=== PATIENT | female | born 1995 | race Native Hawaiian/Other Pacific Islander ===

== ENCOUNTER 2020-03-08 07:51 | Outpatient (CLI) | payer OTHER | END 2020-03-08 22:29 | disposition home or self-care (01) | LOC: LAB 07:51 | DX: R53.83 Other fatigue (principal); Z20.828 Contact with and (suspected) exposure to other viral communicable diseases | CPT/HCPCS: 87635; G2023; U00003 ==

== ENCOUNTER 2022-05-07 19:31 | Outpatient (CLI) | payer OTHER ==
[2022-05-07 19:52] LABS: PLATELET COUNT 369 K/uL (152-353)
[2022-05-07 21:07] LABS: POTASSIUM 4.2 mmol/L (3.6-5.2)
== END 2022-05-07 19:44 | disposition home or self-care (01) ==
LOC: LABW 19:31 → RAD 19:31 → LABW 19:44
PROVIDERS: ATTEND Plastic Surgery
DX: Z01.811 Encounter for preprocedural respiratory examination (principal); Z01.812 Encounter for preprocedural laboratory examination; Z01.818 Encounter for other preprocedural examination
CPT/HCPCS: 80048; 85027

== ENCOUNTER 2022-12-20 10:57 | Outpatient (CLI) | payer OTHER | END 2022-12-20 17:00 | disposition home or self-care (01) | LOC: RESP 10:57 | PROVIDERS: ATTEND Nurse Practitioner Family | DX: R00.2 Palpitations (principal) | CPT/HCPCS: 93005 ==

== ENCOUNTER 2023-03-24 09:02 | Emergency (ER) | payer OTHER ==
[~2023-03-24] VITALS: Ht 157.5 cm; Wt 65.8 kg
[2023-03-24 09:20] VITALS: TEMP 99.8
[2023-03-24 09:51] LABS: PLATELET COUNT 302 K/uL (152-353)
[2023-03-24 12:53] VITALS: BP 112/74
== END 2023-03-24 12:53 | disposition home or self-care (01) ==
LOC: ED 09:02
PROVIDERS: Family Medicine
DX: N39.0 Urinary tract infection, site not specified (principal); R11.2 Nausea with vomiting, unspecified
CPT/HCPCS: 80053; 81000; 81025; 83690; 85027; 87077; 87086; 87088; 87186; 87502; 87635; 96361; 96365; 96367; 96375; 99284; J0696; J1200; J1885; J2405; J2765; U0003